=== PATIENT | male | born 1945 | race African-American/Black ===

== ENCOUNTER 2017-10-26 08:22 | Inpatient (IN) | payer MEDICARE, OTHER ==
[2017-10-26] VITALS (13 sets, daily range): BP systolic 109–159; BP diastolic 49–90; BMI 29.0
[~2017-10-26] VITALS: Ht 180.3 cm; Wt 145.2 kg
--- NOTE | ~2017-10-26 | OP ---
PATIENT NAME: JUDGE FERNANDO MEDICAL RECORD: [id number] :44 LOCATION:D. D.2124 ADMISSION DATE:10/26/17 SURGEON: EVELYN CASTAÑEDA MD DATE OF OPERATION: 11/04/2017 DATE OF ADMISSION: 10/26/2017. REFERRING PHYSICIAN: Vu Patricia MD PREOPERATIVE DIAGNOSIS: End-stage renal disease. POSTOPERATIVE DIAGNOSIS: End-stage renal disease. OPERATION PERFORMED: Insertion of a right internal jugular 19-cm long HemoSplit tunneled dialysis catheter. ANESTHESIA: Local with IV sedation and monitoring per FLASK CARRIER. SURGEON: Evelyn Castañeda MD PREOPERATIVE NOTE: Mr. Mckeon is a 72-year-old -Citizen Of [place] male who was admitted to the hospital with apparent urinary tract infection and sepsis. His renal function most recently had him as a CKD IV, but he is now in end-stage disease and requires initiation of dialysis and so we will need a catheter placed. DESCRIPTION OF PROCEDURE: Under minimal sedation in supine position, the patient's placed with his neck extended and his head turned to the left, is prepped and draped in a sterile manner. Ultrasound examination revealed the right internal jugular vein to be of normal caliber and without any filling defects or any other abnormalities sonographically. An incision was made at the base of the neck directly over the vein and another stab incision made beneath the clavicle. I chose a 19 cm long HemoSplit and flushed both lumens and then pulled it through subcutaneous tunnel from the infraclavicular stab wound up to the cervical incision. Then under ultrasound, I placed a needle and guidewire directly into the internal jugular vein and advanced the wire into the right atrium. Dilators were passed over the wire and lastly, a dilator peel-away sheath was placed and the catheter inserted through the sheath as it was removed. Fluoroscopy demonstrated a very nice positioning of the tip of the catheter deeply in the right atrium. Both lumens of the catheter were then accessed and aspirated, free return of blood confirmed. They were flushed with saline and then Hep-Lock solution, clamped and capped. The catheter was sutured to the skin near the entry site with 2-0 Prolene and a standard CBL dressing with a chlorhexidine Biopatch was applied. The cervical incision was closed with interrupted inverted 3-0 Vicryl and Dermabond glue and dressed with Maxorb Ag, Tegaderm, and Cavilon skin prep. The patient was then returned to his room in stable condition with clearance to as far as I am concerned to go ahead and begin dialysis ALVERTO. I will assume and plan this patient will need long-term dialysis access, but it should be in another admission and done electively after all signs of sepsis are cleared. Blood loss during the operation was nil. All sponges, instruments, and needles were accounted for. No drain was used and no surgical specimen was submitted OPERATIVE REPORT [id number] JUDGE FERNANDO for histopathology. TRANSINT:[id number] Voice Confirmation ID: [id number] DOCUMENT ID: [id number] EVELYN CASTAÑEDA MD at 1459 CC: [id number] DICTATION DATE: 11/04/17926 COTTAGE CHEESE MAKER: 11/04/17 1203 ADM IN [facility] [address] [place] [address]
--- NOTE | ~2017-10-26 | CN ---
PATIENT NAME:JUDGE FERNANDO MEDICAL RECORD: [id number] : 43 LOCATION:[facility].2124 ADMIT DATE: 10/26/17 ACCOUNT: [id number] CONSULTING PHYSICIAN: ANNA MAST MD REFERRING PHYSICIAN: YUSEF CASTILLO MD DATE OF CONSULTATION: 10/26/2017 Pulmonary Consultation CONSULT REQUESTING PHYSICIAN: Aliya Zepeda MD. REASON FOR CONSULTATION: Sepsis critical care. HISTORY OF PRESENT ILLNESS: Mr. Mckeon is a 72-year-old gentleman, now he is very confused and lethargic. History was taken by reviewing the patient's notes, talking to the nursing staff. The patient was doing well until 2 days ago. Yesterday, he became diaphoretic and became very weak. The patient was taken to the [facility]. He has acute non-Q wave UT with elevated troponin and also worsening renal function with a creatinine above 6. He had also significant leukocytosis of 20,000. The patient was transferred to [facility] for advanced care. REVIEW OF SYSTEMS: The details not obtainable. PAST MEDICAL HISTORY: 1. Chronic kidney disease. 2. Coronary artery disease. 3. Peripheral vascular disease. 4. History of diabetes mellitus type 2. 5. History of CVA. 6. History of DVT. 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 ALLERGIES: There are no known drug allergies. MEDICATIONS: On [employer] was reviewed. PERSONAL AND SOCIAL HISTORY: Nonsmoker, nondrinker. FAMILY HISTORY: Noncontributory. PHYSICAL EXAMINATION: GENERAL: Now, the patient is lying comfortably in bed. He is not in acute distress. VITAL SIGNS: The blood pressure is 155/79, pulse is 53, respiration is 16, SpO2 is 94% on 1 liter nasal cannula. HEENT: Conjunctivae pink, sclerae nonicteric. NECK: Supple, no JVD. CHEST: Excursion is minimal on both sides. No wheeze, no rales. HEART: Rhythm regular, normal sound, no murmur. ABDOMEN: Soft, bowel sounds present. No hepatosplenomegaly. RECTAL: Deferred. EXTREMITIES: No cyanosis, no clubbing. There is bilateral lower extremity CONSULT REPORT [id number] JUDGE FERNANDO amputation. CENTRAL NERVOUS SYSTEM: The patient is awake and alert, but he is very confused. LABORATORY DATA: CBC: The WBC is 20.5, hemoglobin 9.1, hematocrit 29.9 and the platelet count is 189. Chemistry: Sodium 140, potassium 4.3, chloride 104, bicarbonate is 20, BUN 106, creatinine 6.5. INR is 3.52. The urine has 3+ protein, 2+ blood. Color is turbid. IMPRESSION: 1. Acute hypoxic respiratory failure. 2. Sepsis bacteremia, most likely secondary to urinary tract infection. 3. Non-Q wave myocardial infarction. 4. Chronic kidney disease, which is getting acute on chronic kidney disease. 5. Peripheral vascular disease. 6. History of cerebrovascular accident. RECOMMENDATION: 1. I will discontinue Rocephin and start him on vancomycin, Levaquin, and cefepime to cover for MRSA and Gram-negative rods. 2. Follow up labs and chest radiograph. Follow up on the blood culture. 3. Heparin for acute UT. Dr. Zepeda, thank you for involving me in the care of Mr. Mckeon. TRANSINT:[id number] Voice Confirmation ID: [id number] DOCUMENT ID: [id number] ANNA MAST MD at 1340 CC: DOMINIQUE MAYA [id number] DICTATION DATE: 10/26/17 1538 PROCESS MOLD TECHNICIAN: 10/26/17 1613 DIS IN 11/12/[address] [address]
--- NOTE | ~2017-10-26 | CN ---
PATIENT NAME:JUDGE FERNANDO MEDICAL RECORD: [id number] : 43 LOCATION:[facility].2124 ADMIT DATE: 10/26/17 ACCOUNT: [id number] CONSULTING PHYSICIAN: STEPHAN JACOBSON MD REFERRING PHYSICIAN: YUSEF CASTILLO MD DATE OF CONSULTATION: 10/26/2017 CARDIOLOGY CONSULTATION DIAGNOSES: 1. Non-Q-wave myocardial infarction. 2. Coronary artery disease. 3. Abnormal ECG. 4. Renal failure. 5. Urosepsis. 6. Peripheral vascular disease. 7. Anemia. 8. History of hypertension. HISTORY OF PRESENT ILLNESS: Mr. Mckeon presents to [facility] with uroseptic hypotensive syndrome and found to have an elevated troponin. His EKG has T-wave inversions throughout the anterolateral leads. He is not having any chest pain or chest discomfort. Very poor historian. He is in yushs-hc-ycowidv renal failure. His creatinine is greater than 6. Previously, his creatinine was in the 3.0 range. He is followed by Dr. Guillermo. He does not have a history of coronary artery disease. He has a history of peripheral vascular disease. PHYSICAL EXAMINATION: GENERAL APPEARANCE: Well-nourished, well-developed, appears stated age. Level of distress, comfortable. PSYCHIATRIC: Mental status, alert, normal affect. Orientation, oriented to time, place and person. EYES: Lids and conjunctiva, noninjected. No discharge, no pallor. ENT: Lips, teeth, gums, normal dentition. Oropharynx, no cyanosis, no pallor. NECK: Carotid arteries, bilateral normal upstroke, no bruits, no thrills. JUGULAR VEINS: No jugular venous pressure or distention. CERVICAL LYMPH NODES: Nontender, nonenlarged. THYROID: Not enlarged. Nontender. No nodules. LUNGS: Respiratory effort, unlabored. CHEST: Normal curvature. No thoracic deformity. No chest wall tenderness. Percussion, resonant. Auscultation, clear. No wheezes, no rales, no rhonchi. CARDIOVASCULAR: Precordial exam, nondisplaced. No heaves or pericardial thrills. Rate and rhythm, regular. Heart sounds, normal S1, normal S2. No S3, no gallop, no rub. Systolic murmur, not heard. Diastolic murmur, not heard. EXTREMITIES: No cyanosis, no edema. Peripheral pulses, full and equal in all extremities, except as noted. No bruits appreciated. ABDOMEN: Soft, nondistended. Normal aorta. No bruit. Nontender. No masses. Liver, nontender, no hepatomegaly. Spleen, nontender, no splenomegaly. MUSCULOSKELETAL: No joint tenderness. No joint swelling. No erythema. NEUROLOGICAL: Normal gait, normal strength, normal tone. SKIN: Warm and dry. OVERALL IMPRESSION: Non-Q-wave myocardial infarction. At this time, he is on pressors. We cannot add a beta-peyman. We will add aspirin and Plavix. Get an echo for LV function. Further care depends upon his status after treatment CONSULT REPORT [id number] JUDGE FERNANDO of the urosepsis. TRANSINT:[id number] Voice Confirmation ID: [id number] DOCUMENT ID: [id number] STEPHAN JACOBSON MD at 1148 CC: [id number] DICTATION DATE: 10/26/17 1200 MEDICAL RECORD LIBRARIANS TEACHER: 10/26/17 1223 ADM IN [place] [id number] [place] [address]
--- NOTE | ~2017-10-26 | EC ---
PATIENT:JUDGE FERNANDO DATE OF SERVICE: 10/26/17 SEX: M MEDICAL RECORD: [id number] DATE OF : 43 LOCATION:D.M2 D.212 AGE OF PATIENT: 72 ADMISSION DATE: 10/26/17 REFERRING PHYSICIAN: INTERPRETING PHYSICIAN: STEPHAN JACOBSON MD ECHOCARDIOGRAM REPORT ECHO CHARGES 4 ECHO COMPLETE CLINICAL DIAGNOSIS: [place] ECHOCARDIOGRAPHIC MEASUREMENTS (adult normal given) AC root (d.<3.7cm) 4.0 cm LV Septum d (<1.2 cm> 1.9 cm Valve Excursion 2.1 cm LV Septum (systole) 2.4 cm Left Atria (s.<4.0cm> 4.3 cm LVPW d(<1.2cm) 1.8 cm RV (d.<2.3cm) 2.6 cm LVPW (sytole) 2.3 cm LV diastole(<5.6CM) 5.3 cm MV E-F(>70mm/sec) cm LV systole 4.2 cm LVOT Diameter 2.0 cm MV exc.(>10mm) cm Est.ejection fraction (50-75%) % Pericardial Effusion N DOPPLER: LVIT cm/sec A 138 cm/sec E 69.0 cm/sec LA cm/sec RVSP 21.4 mmHg LVOT 87.0 cm/sec AOP1/2T m/s Asc. Ao 105 cm/sec RVOT 44.0 cm/sec RA cm/sec PA 67.0 cm/sec AV Gradient Peak 4.4 mmHg AV Mean 2.1 mmHg AV Area 2.7 cm MV Gradient Peak 9.1 mmHg MV Mean 2.4 mmHg MV Area cm COMMENTS: Accounts Specialist: 1 OLIVIA YEH Brine Tank Separator Operator: 2 Dr. He TAPE# PACS DATE OF SERVICE: 10/26/2017 Echocardiogram FINDINGS: 1. Left ventricle chamber size is within normal limits. Left ventricular systolic function is mildly depressed. Overall ejection fraction estimated at 40%. 2. Left atrium, right atrium and right ventricular chamber sizes are dilated mildly. ECHOCARDIOGRAM REPORT [id number] JUDGE FERNANDO 3. Valvular structures have normal structure and motion. 4. Doppler interrogation reveals mild aortic insufficiency, moderate mitral regurgitation, mild tricuspid regurgitation, no other valvular insufficiency or stenosis and pulmonary systolic pressure is normal estimated at 21 mmHg. 5. No evidence of pericardial effusion or left ventricular thrombus. TRANSINT:[id number] Voice Confirmation ID: [id number] DOCUMENT ID: [id number] STEPHAN JACOBSON MD at 1148 CC: [id number] DICTATION DATE: 10/26/17 1645 ELECTRICAL PRODUCTS ENGINEER: 10/26/17 1901 ADM IN [facility] [address] [place] [address]
[~2017-10-26 08:22] MED LIST: COUMADIN2.5 MG PO; HYDROCODON-ACE1 EAC7 PO; K-DUR20 MEQ PO; LASIX80 MG PO; LEVAQUIN500 MG PO; LIPITOR20 MG PO; NORVASC5 MG PO; NOVOLOG100 U/M1; REMERON30 MG/UDTA PO; TOPROL XL100 MG PO; VASOTEC20 MG PO; ZESTRIL40 MG PO
[2017-10-26 09:34] LABS: AMORPHOUS SEDIMENT >1+ /lpf (NONE SEEN); APPEARANCE TURBID (CLEAR); BACTERIA MANY /hpf (NONE SEEN); BILIRUBIN NEGATIVE (NEGATIVE); COLOR YELLOW (YELLOW); EPITHELIAL CELLS 0-5 /hpf (0-5); GLUCOSE NEGATIVE (NEGATIVE); HYALINE CAST RARE /lpf (NONE SEEN); KETONE NEGATIVE (NEGATIVE); MUCUS <1+ /lpf (NONE SEEN); NITRITE NEGATIVE (NEGATIVE); PROTEIN 3+ mg/dL (NEGATIVE); SPECIFIC GRAVITY 1.015 (1.005-1.020); UROBILINOGEN NORMAL (NORMAL); WHITE CELLS - URINE >50 /hpf (0-5)
[2017-10-26 10:27] LABS: ALBUMIN 2.7 g/dL (3.4-5.0); ANION GAP 20.3 mmol/L (8-16); BILIRUBIN - TOTAL 0.43 mg/dL (0.2-1.3); CREATININE - SERUM 6.5 mg/dL (0.6-1.3); POTASSIUM - SERUM 4.3 mmol/L (3.5-5.1); PROTEIN - SERUM 7.2 g/dL (6.4-8.2)
[2017-10-26 10:29] LABS: INR 3.52 (0.85-1.17); PROTIME 34.5 SECONDS (11.6-15.0)
[2017-10-26 10:30] LABS: D-DIMER-QUANTITATIVE 0.93 ug/mLFEU (0.20-0.54)
[2017-10-26 10:40] LABS: HEMATOCRIT 29.9 % (42.0-54.0); HEMOGLOBIN 9.1 g/dL (13.5-17.5); MCH 27.2 pg (26.0-34.0); MCHC 30.4 g/dL (31.0-37.0); MCV 89.3 fL (80.0-100.0); MEAN PLATELET VOLUME 13.5 fL (7.4-10.4); PLATELET COUNT 189 10x3/uL (130-400); RBC 3.35 10x6/uL (4.20-6.10); RDW 15.4 % (11.5-14.5); WBC 20.5 10x3/uL (4.8-10.8)
[2017-10-26 10:49] LABS: TROPONIN-I 23.189 ng/mL (0.000-0.060)
[2017-10-26 10:56] LABS: LYMPHOCYTES 17 % (15-50); MONOCYTES 7 % (2-11); NEUTROPHILS 61 % (40-80); PLATELET ESTIMATE NORMAL; POIKILOCYTOSIS 1+
[2017-10-26 11:11] LABS: APTT > 200.0 SECONDS (22.8-39.4)
[2017-10-26] MEDS ORDERED: COUMADIN2.5 MG PO (13:53)
[2017-10-27] VITALS (15 sets, daily range): BP systolic 108–167; BP diastolic 51–80; Ht 180.3 cm; Wt 145.2 kg
[2017-10-27 02:01] LABS: BASOPHILS 0.1 % (0-2); EOSINOPHILS 0.2 % (0-7); HEMATOCRIT 28.9 % (42.0-54.0); HEMOGLOBIN 8.9 g/dL (13.5-17.5); IMMATURE GRANULOCYTES 0.4 % (0-5); LYMPHOCYTES 14.9 % (15-50); MCH 26.7 pg (26.0-34.0); MCHC 30.8 g/dL (31.0-37.0); MCV 86.8 fL (80.0-100.0); MEAN PLATELET VOLUME 12.9 fL (7.4-10.4); MONOCYTES 4.2 % (2-11); NEUTROPHILS 80.2 % (40-80); PLATELET COUNT 187 10x3/uL (130-400); RBC 3.33 10x6/uL (4.20-6.10); RDW 15.2 % (11.5-14.5); WBC 19.4 10x3/uL (4.8-10.8)
[2017-10-27 02:13] LABS: ALBUMIN 2.3 g/dL (3.4-5.0); ANION GAP 18.4 mmol/L (8-16); BILIRUBIN - TOTAL 0.23 mg/dL (0.2-1.3); CARBON DIOXIDE 20.2 mmol/L (21.0-32.0); CREATININE - SERUM 6.6 mg/dL (0.6-1.3); POTASSIUM - SERUM 4.6 mmol/L (3.5-5.1); PROTEIN - SERUM 6.7 g/dL (6.4-8.2)
[2017-10-27 10:27] LABS: INR 4.52 (0.85-1.17)
[2017-10-27 10:37] LABS: APTT > 200.0 SECONDS (22.8-39.4)
[2017-10-27] MEDS ORDERED: BACTRIM DS TABL1 TAB PO (10:45)
[2017-10-27] MEDS ORDERED: CATAPRES0.1 MG PO (10:46)
[2017-10-27] MEDS ORDERED: ROCALTROL0.5 MCG PO (10:47)
[2017-10-27] MEDS ORDERED: ZESTRIL40 MG PO (10:48)
[2017-10-27] MEDS ORDERED: VITAMIN D10000 UNI1 PO (10:50)
[2017-10-27] MEDS ORDERED: LANTUS SOL100 UNIT/1 SC (10:50)
[2017-10-27] MEDS ORDERED: HUMALOG 30100 UNITS/ SC (10:51)
[2017-10-28 00:33] VITALS: BP 148/58
[2017-10-28 04:51] VITALS: BP 152/53
[2017-10-28 05:16] LABS: INR 4.46 (0.85-1.17); PROTIME 41.6 SECONDS (11.6-15.0)
[2017-10-28 05:17] LABS: APTT 94.7 SECONDS (22.8-39.4); BASOPHILS 0.2 % (0-2); EOSINOPHILS 0.8 % (0-7); HEMOGLOBIN 8.5 g/dL (13.5-17.5); IMMATURE GRANULOCYTES 0.4 % (0-5); LYMPHOCYTES 18.2 % (15-50); MCH 26.2 pg (26.0-34.0); MCHC 30.4 g/dL (31.0-37.0); MCV 86.2 fL (80.0-100.0); MEAN PLATELET VOLUME 13.6 fL (7.4-10.4); MONOCYTES 6.1 % (2-11); NEUTROPHILS 74.3 % (40-80); PLATELET COUNT 185 10x3/uL (130-400); RBC 3.25 10x6/uL (4.20-6.10); RDW 15.3 % (11.5-14.5)
[2017-10-28 05:18] LABS: WBC 11.1 10x3/uL (4.8-10.8)
[2017-10-28 05:25] LABS: ALBUMIN 2.3 g/dL (3.4-5.0); ANION GAP 17.3 mmol/L (8-16); BILIRUBIN - TOTAL 0.3 mg/dL (0.2-1.3); CALCIUM 8.4 mg/dL (8.5-10.1); CARBON DIOXIDE 19.8 mmol/L (21.0-32.0); CREATININE - SERUM 6.1 mg/dL (0.6-1.3); MAGNESIUM - SERUM 2.4 mg/dL (1.8-2.4); POTASSIUM - SERUM 4.1 mmol/L (3.5-5.1); PROTEIN - SERUM 6.5 g/dL (6.4-8.2)
[2017-10-28 07:28] VITALS: BP 144/63
[2017-10-28 11:27] VITALS: BP 128/59
[2017-10-28 15:00] VITALS: BP 145/65
[2017-10-28 20:03] VITALS: BP 131/63
[2017-10-29 00:51] VITALS: BP 145/52
[2017-10-29 03:58] LABS: BASOPHILS 0.3 % (0-2); EOSINOPHILS 0.8 % (0-7); HEMATOCRIT 27.5 % (42.0-54.0); HEMOGLOBIN 8.4 g/dL (13.5-17.5); IMMATURE GRANULOCYTES 0.4 % (0-5); LYMPHOCYTES 30.1 % (15-50); MCH 26.2 pg (26.0-34.0); MCHC 30.5 g/dL (31.0-37.0); MCV 85.7 fL (80.0-100.0); MEAN PLATELET VOLUME 12.8 fL (7.4-10.4); MONOCYTES 8.5 % (2-11); NEUTROPHILS 59.9 % (40-80); PLATELET COUNT 179 10x3/uL (130-400); RBC 3.21 10x6/uL (4.20-6.10); RDW 15.1 % (11.5-14.5)
[2017-10-29 03:59] LABS: WBC 7.8 10x3/uL (4.8-10.8)
[2017-10-29 04:18] LABS: ALBUMIN 2.2 g/dL (3.4-5.0); ANION GAP 16.3 mmol/L (8-16); BILIRUBIN - TOTAL 0.37 mg/dL (0.2-1.3); CALCIUM 8.5 mg/dL (8.5-10.1); CARBON DIOXIDE 19.7 mmol/L (21.0-32.0); MAGNESIUM - SERUM 2.2 mg/dL (1.8-2.4); PROTEIN - SERUM 6.6 g/dL (6.4-8.2); VANCOMYCIN - RANDOM 31.3 ug/mL (10.0-20.0)
[2017-10-29 04:32] VITALS: BP 144/76
[2017-10-29 07:54] VITALS: BP 147/60
[2017-10-29 11:28] VITALS: BP 95/66
[2017-10-29 15:22] VITALS: BP 126/65
[2017-10-29 19:00] VITALS: BP 140/57
[2017-10-30] VITALS: BP 154/64
[2017-10-30 04:00] VITALS: BP 174/67
[2017-10-30 04:32] LABS: BASOPHILS 0.3 % (0-2); EOSINOPHILS 0.8 % (0-7); HEMATOCRIT 27.9 % (42.0-54.0); HEMOGLOBIN 8.4 g/dL (13.5-17.5); IMMATURE GRANULOCYTES 0.8 % (0-5); LYMPHOCYTES 33.7 % (15-50); MCH 26.1 pg (26.0-34.0); MCHC 30.1 g/dL (31.0-37.0); MCV 86.6 fL (80.0-100.0); MEAN PLATELET VOLUME 12.8 fL (7.4-10.4); MONOCYTES 9.1 % (2-11); NEUTROPHILS 55.3 % (40-80); PLATELET COUNT 186 10x3/uL (130-400); RBC 3.22 10x6/uL (4.20-6.10); RDW 15.2 % (11.5-14.5); WBC 7.7 10x3/uL (4.8-10.8)
[2017-10-30 04:53] LABS: ALBUMIN 2.4 g/dL (3.4-5.0); ANION GAP 15.2 mmol/L (8-16); BILIRUBIN - TOTAL 0.4 mg/dL (0.2-1.3); CALCIUM 7.8 mg/dL (8.5-10.1); CARBON DIOXIDE 22.8 mmol/L (21.0-32.0); CREATININE - SERUM 6.1 mg/dL (0.6-1.3); MAGNESIUM - SERUM 2.4 mg/dL (1.8-2.4); PROTEIN - SERUM 6.8 g/dL (6.4-8.2); VANCOMYCIN - RANDOM 26.9 ug/mL (10.0-20.0)
[2017-10-30 08:24] VITALS: BP 188/68
[2017-10-30 11:36] VITALS: BP 119/59
[2017-10-30 15:41] VITALS: BP 160/65
[2017-10-30 18:29] LABS: APPEARANCE CLEAR (CLEAR); BILIRUBIN NEGATIVE (NEGATIVE); COLOR YELLOW (YELLOW); GLUCOSE NEGATIVE (NEGATIVE); KETONE NEGATIVE (NEGATIVE); NITRITE NEGATIVE (NEGATIVE); PROTEIN 2+ mg/dL (NEGATIVE); SPECIFIC GRAVITY 1.015 (1.005-1.020); UROBILINOGEN NORMAL (NORMAL)
[2017-10-30 18:33] LABS: BACTERIA MODERATE /hpf (NONE SEEN); EPITHELIAL CELLS 0-5 /hpf (0-5); GRANULAR CAST OCC /lpf (NONE SEEN); HYALINE CAST RARE /lpf (NONE SEEN); MUCUS <1+ /lpf (NONE SEEN); RED CELLS - URINE OCC /hpf (0-5); WHITE CELLS - URINE 0-5 /hpf (0-5)
[2017-10-30 20:00] VITALS: BP 104/69
[2017-10-31] VITALS: BP 175/69
[2017-10-31 04:00] VITALS: BP 144/70
[2017-10-31 05:41] LABS: BASOPHILS 0.2 % (0-2); EOSINOPHILS 0.8 % (0-7); HEMATOCRIT 27.7 % (42.0-54.0); HEMOGLOBIN 8.4 g/dL (13.5-17.5); IMMATURE GRANULOCYTES 0.9 % (0-5); LYMPHOCYTES 35.3 % (15-50); MCH 26.3 pg (26.0-34.0); MCHC 30.3 g/dL (31.0-37.0); MCV 86.6 fL (80.0-100.0); MEAN PLATELET VOLUME 13.1 fL (7.4-10.4); MONOCYTES 9.2 % (2-11); NEUTROPHILS 53.6 % (40-80); PLATELET COUNT 195 10x3/uL (130-400); RDW 15.3 % (11.5-14.5); WBC 8.5 10x3/uL (4.8-10.8)
[2017-10-31 05:48] LABS: INR 1.9 (0.85-1.17); PROTIME 21.2 SECONDS (11.6-15.0)
[2017-10-31 05:55] LABS: ALBUMIN 2.5 g/dL (3.4-5.0); ANION GAP 17.1 mmol/L (8-16); BILIRUBIN - TOTAL 0.5 mg/dL (0.2-1.3); CALCIUM 8.2 mg/dL (8.5-10.1); CARBON DIOXIDE 21.8 mmol/L (21.0-32.0); CREATININE - SERUM 5.8 mg/dL (0.6-1.3); MAGNESIUM - SERUM 2.4 mg/dL (1.8-2.4); POTASSIUM - SERUM 3.9 mmol/L (3.5-5.1); PROTEIN - SERUM 6.9 g/dL (6.4-8.2); VANCOMYCIN - RANDOM 23.7 ug/mL (10.0-20.0)
[2017-10-31 07:48] VITALS: BP 149/67
[2017-10-31 10:38] VITALS: BP 143/77
[2017-10-31 14:56] VITALS: BP 138/77
[2017-10-31 20:00] VITALS: BP 179/64
[2017-11-01 04:00] VITALS: BP 119/61
[2017-11-01 08:06] VITALS: BP 119/66
[2017-11-01 11:14] VITALS: BP 166/58
[2017-11-01 14:56] VITALS: BP 154/61
[2017-11-01 20:00] VITALS: BP 157/69
[2017-11-02] VITALS: BP 150/60
[2017-11-02 04:00] VITALS: BP 118/66
[2017-11-02 06:19] LABS: BASOPHILS 0.1 % (0-2); EOSINOPHILS 1.8 % (0-7); HEMATOCRIT 27.9 % (42.0-54.0); HEMOGLOBIN 8.4 g/dL (13.5-17.5); IMMATURE GRANULOCYTES 1.8 % (0-5); LYMPHOCYTES 31.7 % (15-50); MCH 26.3 pg (26.0-34.0); MCHC 30.1 g/dL (31.0-37.0); MCV 87.2 fL (80.0-100.0); MEAN PLATELET VOLUME 13.1 fL (7.4-10.4); MONOCYTES 10.1 % (2-11); NEUTROPHILS 54.5 % (40-80); PLATELET COUNT 232 10x3/uL (130-400); RDW 15.3 % (11.5-14.5)
[2017-11-02 06:32] LABS: ANION GAP 15.5 mmol/L (8-16); CARBON DIOXIDE 24.3 mmol/L (21.0-32.0); CREATININE - SERUM 5.3 mg/dL (0.6-1.3); POTASSIUM - SERUM 3.8 mmol/L (3.5-5.1)
[2017-11-02 08:04] VITALS: BP 144/64
[2017-11-02 11:04] VITALS: BP 142/68
[2017-11-02 14:39] VITALS: BP 136/77
[2017-11-02 20:39] VITALS: BP 75/43
[2017-11-03] VITALS: BP 81/56
[2017-11-03 04:53] VITALS: BP 105/45
[2017-11-03 08:09] VITALS: BP 121/61
[2017-11-03 09:45] LABS: BASOPHILS 0.1 % (0-2); EOSINOPHILS 1.6 % (0-7); HEMATOCRIT 26.9 % (42.0-54.0); HEMOGLOBIN 8.3 g/dL (13.5-17.5); IMMATURE GRANULOCYTES 2.1 % (0-5); LYMPHOCYTES 31.8 % (15-50); MCH 26.9 pg (26.0-34.0); MCHC 30.9 g/dL (31.0-37.0); MCV 87.1 fL (80.0-100.0); MEAN PLATELET VOLUME 12.4 fL (7.4-10.4); MONOCYTES 9.1 % (2-11); NEUTROPHILS 55.3 % (40-80); PLATELET COUNT 238 10x3/uL (130-400); RBC 3.09 10x6/uL (4.20-6.10); RDW 15.5 % (11.5-14.5); WBC 9.2 10x3/uL (4.8-10.8)
[2017-11-03 09:48] LABS: ANION GAP 15.7 mmol/L (8-16); CALCIUM 8.5 mg/dL (8.5-10.1); CARBON DIOXIDE 23.8 mmol/L (21.0-32.0); CREATININE - SERUM 5.6 mg/dL (0.6-1.3)
[2017-11-03 09:56] LABS: POTASSIUM - SERUM 4.5 mmol/L (3.5-5.1)
[2017-11-03 11:19] VITALS: BP 111/54
[2017-11-03 15:22] VITALS: BP 111/54
[2017-11-03 20:00] VITALS: BP 119/57
[2017-11-04] VITALS: BP 101/50
[2017-11-04 04:00] VITALS: BP 136/52
[2017-11-04 06:24] LABS: BASOPHILS 0.1 % (0-2); EOSINOPHILS 1.6 % (0-7); HEMATOCRIT 26.2 % (42.0-54.0); HEMOGLOBIN 7.8 g/dL (13.5-17.5); IMMATURE GRANULOCYTES 1.6 % (0-5); LYMPHOCYTES 28.9 % (15-50); MCH 26.4 pg (26.0-34.0); MCHC 29.8 g/dL (31.0-37.0); MCV 88.5 fL (80.0-100.0); MEAN PLATELET VOLUME 12.8 fL (7.4-10.4); MONOCYTES 8.3 % (2-11); NEUTROPHILS 59.5 % (40-80); PLATELET COUNT 251 10x3/uL (130-400); RBC 2.96 10x6/uL (4.20-6.10); RDW 15.7 % (11.5-14.5); WBC 8.6 10x3/uL (4.8-10.8)
[2017-11-04 06:26] LABS: APTT 22.5 SECONDS (22.8-39.4); INR 1.45 (0.85-1.17); PROTIME 17.2 SECONDS (11.6-15.0)
[2017-11-04 06:32] LABS: % SATURATION 43 % (15-55); IRON 63 ug/dl (35-150); TOTAL IRON BIND CAPACITY 144 ug/dl (260-445); UNSAT IRON BIND CAPACITY 81 ug/dl (150-375)
[2017-11-04 07:12] LABS: ANION GAP 14.4 mmol/L (8-16); CALCIUM 8.7 mg/dL (8.5-10.1); CARBON DIOXIDE 25.5 mmol/L (21.0-32.0); CREATININE - SERUM 5.7 mg/dL (0.6-1.3); PHOSPHOROUS 6.1 mg/dL (2.5-4.9); POTASSIUM - SERUM 3.9 mmol/L (3.5-5.1); VANCOMYCIN - RANDOM 15.4 ug/mL (10.0-20.0)
[2017-11-04 08:53] VITALS: BP 141/56
[2017-11-04 13:36] VITALS: BP 121/52
[2017-11-04 19:00] VITALS: BP 106/85
[2017-11-05] VITALS: BP 136/64
[2017-11-05 04:00] VITALS: BP 137/50
[2017-11-05 06:17] LABS: BASOPHILS 0.2 % (0-2); HEMATOCRIT 27.8 % (42.0-54.0); HEMOGLOBIN 8.3 g/dL (13.5-17.5); IMMATURE GRANULOCYTES 1.4 % (0-5); LYMPHOCYTES 20.4 % (15-50); MCH 26.7 pg (26.0-34.0); MCHC 29.9 g/dL (31.0-37.0); MCV 89.4 fL (80.0-100.0); MONOCYTES 7.5 % (2-11); NEUTROPHILS 69.5 % (40-80); PLATELET COUNT 242 10x3/uL (130-400); RBC 3.11 10x6/uL (4.20-6.10); RDW 15.8 % (11.5-14.5)
[2017-11-05 06:20] LABS: ANION GAP 13.9 mmol/L (8-16); CALCIUM 8.9 mg/dL (8.5-10.1); CREATININE - SERUM 4.5 mg/dL (0.6-1.3); POTASSIUM - SERUM 3.9 mmol/L (3.5-5.1); VANCOMYCIN - RANDOM 14.4 ug/mL (10.0-20.0)
[2017-11-05 07:46] VITALS: BP 137/50
[2017-11-05 08:20] LABS: FOLATE (FOLIC ACID) - SERUM 5.2 ng/mL (>3.0)
[2017-11-05 11:10] LABS: INR 1.44 (0.85-1.17); PROTIME 17.1 SECONDS (11.6-15.0)
[2017-11-05 11:11] LABS: APTT 33.4 SECONDS (22.8-39.4)
[2017-11-05 15:34] VITALS: BP 106/49
[2017-11-05 18:10] LABS: HEMATOCRIT 27.6 % (42.0-54.0); HEMOGLOBIN 8.4 g/dL (13.5-17.5)
[2017-11-05 18:21] LABS: INR 1.35 (0.85-1.17); PROTIME 16.2 SECONDS (11.6-15.0)
[2017-11-06 00:47] VITALS: BP 123/55
[2017-11-06 05:39] LABS: BASOPHILS 0.2 % (0-2); EOSINOPHILS 0.9 % (0-7); HEMATOCRIT 25.7 % (42.0-54.0); HEMOGLOBIN 7.6 g/dL (13.5-17.5); IMMATURE GRANULOCYTES 0.7 % (0-5); LYMPHOCYTES 17.8 % (15-50); MCH 26.4 pg (26.0-34.0); MCHC 29.6 g/dL (31.0-37.0); MCV 89.2 fL (80.0-100.0); MEAN PLATELET VOLUME 12.6 fL (7.4-10.4); NEUTROPHILS 73.4 % (40-80); PLATELET COUNT 218 10x3/uL (130-400); RBC 2.88 10x6/uL (4.20-6.10); RDW 15.9 % (11.5-14.5); WBC 11.6 10x3/uL (4.8-10.8)
[2017-11-06 06:02] LABS: INR 1.31 (0.85-1.17); PROTIME 15.8 SECONDS (11.6-15.0)
[2017-11-06 06:05] LABS: ANION GAP 15.7 mmol/L (8-16); CALCIUM 8.9 mg/dL (8.5-10.1); CREATININE - SERUM 4.7 mg/dL (0.6-1.3); POTASSIUM - SERUM 3.7 mmol/L (3.5-5.1)
[2017-11-06 06:44] VITALS: BP 134/57
[2017-11-06 08:11] VITALS: BP 125/46
[2017-11-06 11:26] VITALS: BP 131/52
[2017-11-06 16:53] VITALS: BP 126/58
[2017-11-06 20:00] VITALS: BP 91/62
[2017-11-07 06:00] VITALS: BP 110/30
[2017-11-07 08:13] LABS: BASOPHILS 0.2 % (0-2); IMMATURE GRANULOCYTES 0.4 % (0-5); LYMPHOCYTES 20.8 % (15-50); MCH 27.5 pg (26.0-34.0); MCHC 31.8 g/dL (31.0-37.0); MEAN PLATELET VOLUME 12.6 fL (7.4-10.4); MONOCYTES 10.1 % (2-11); NEUTROPHILS 66.5 % (40-80); PLATELET COUNT 181 10x3/uL (130-400); RDW 15.5 % (11.5-14.5); WBC 10.1 10x3/uL (4.8-10.8)
[2017-11-07 08:21] LABS: ANION GAP 14.6 mmol/L (8-16); CALCIUM 8.9 mg/dL (8.5-10.1); CARBON DIOXIDE 25.3 mmol/L (21.0-32.0); CREATININE - SERUM 5.5 mg/dL (0.6-1.3); POTASSIUM - SERUM 3.9 mmol/L (3.5-5.1)
[2017-11-07 08:33] LABS: HEMATOCRIT 34.3 % (42.0-54.0); HEMOGLOBIN 10.9 g/dL (13.5-17.5); MCV 86.6 fL (80.0-100.0); RBC 3.96 10x6/uL (4.20-6.10)
[2017-11-07 08:46] VITALS: BP 166/70
[2017-11-07 16:11] VITALS: BP 170/70
[2017-11-07 20:00] VITALS: BP 128/74
[2017-11-08 04:53] LABS: BASOPHILS 0.3 % (0-2); EOSINOPHILS 1.5 % (0-7); IMMATURE GRANULOCYTES 0.4 % (0-5); LYMPHOCYTES 18.7 % (15-50); MCH 27.6 pg (26.0-34.0); MCHC 31.4 g/dL (31.0-37.0); MCV 87.7 fL (80.0-100.0); MEAN PLATELET VOLUME 12.3 fL (7.4-10.4); MONOCYTES 10.2 % (2-11); NEUTROPHILS 68.9 % (40-80); PLATELET COUNT 195 10x3/uL (130-400); RBC 3.99 10x6/uL (4.20-6.10); RDW 15.8 % (11.5-14.5)
[2017-11-08 05:06] LABS: ANION GAP 14.7 mmol/L (8-16); CALCIUM 8.2 mg/dL (8.5-10.1); CARBON DIOXIDE 27.8 mmol/L (21.0-32.0); POTASSIUM - SERUM 3.5 mmol/L (3.5-5.1)
[2017-11-08 05:07] LABS: CREATININE - SERUM 3.8 mg/dL (0.6-1.3)
[2017-11-08 05:57] VITALS: BP 155/68
[2017-11-08 09:37] VITALS: BP 163/67
[2017-11-08 11:50] VITALS: BP 112/59
[2017-11-08 16:20] VITALS: BP 137/62
[2017-11-08 20:00] VITALS: BP 93/41
[2017-11-09] VITALS: BP 112/52
[2017-11-09 04:00] VITALS: BP 100/50
[2017-11-09 05:39] LABS: BASOPHILS 0.2 % (0-2); EOSINOPHILS 1.5 % (0-7); HEMATOCRIT 34.2 % (42.0-54.0); HEMOGLOBIN 10.7 g/dL (13.5-17.5); IMMATURE GRANULOCYTES 0.2 % (0-5); LYMPHOCYTES 20.6 % (15-50); MCH 27.7 pg (26.0-34.0); MCHC 31.3 g/dL (31.0-37.0); MCV 88.6 fL (80.0-100.0); MEAN PLATELET VOLUME 12.4 fL (7.4-10.4); MONOCYTES 12.9 % (2-11); NEUTROPHILS 64.6 % (40-80); PLATELET COUNT 198 10x3/uL (130-400); RBC 3.86 10x6/uL (4.20-6.10); RDW 15.8 % (11.5-14.5); WBC 9.8 10x3/uL (4.8-10.8)
[2017-11-09 05:51] LABS: ANION GAP 13.8 mmol/L (8-16); CALCIUM 8.5 mg/dL (8.5-10.1); CARBON DIOXIDE 28.7 mmol/L (21.0-32.0); POTASSIUM - SERUM 3.5 mmol/L (3.5-5.1)
[2017-11-09 06:04] LABS: CREATININE - SERUM 5.6 mg/dL (0.6-1.3)
[2017-11-09 08:37] VITALS: BP 127/54
[2017-11-09 12:35] VITALS: BP 109/59
[2017-11-09] MEDS ORDERED: COREG6.25 MG PO (15:14)
[2017-11-09] MEDS ORDERED: TUMS500 MG PO (15:14)
[2017-11-09] MEDS ORDERED: ANUSOL-HC25 MG RC (15:15)
[2017-11-09] MEDS ORDERED: MIRALAX17 GM PO (15:15)
[2017-11-09] MEDS ORDERED: PLAVIX75 MG PO (15:16)
[2017-11-09 20:12] VITALS: BP 86/45
[2017-11-10 02:32] VITALS: BP 170/73
[2017-11-10 06:09] LABS: BASOPHILS 0.6 % (0-2); EOSINOPHILS 2.8 % (0-7); HEMATOCRIT 35.8 % (42.0-54.0); IMMATURE GRANULOCYTES 0.3 % (0-5); LYMPHOCYTES 22.1 % (15-50); MCH 27.5 pg (26.0-34.0); MCHC 30.7 g/dL (31.0-37.0); MCV 89.5 fL (80.0-100.0); MONOCYTES 14.1 % (2-11); NEUTROPHILS 60.1 % (40-80); PLATELET COUNT 197 10x3/uL (130-400); RDW 15.6 % (11.5-14.5)
[2017-11-10 06:23] VITALS: BP 127/64
[2017-11-10 06:34] LABS: ANION GAP 13.2 mmol/L (8-16); CALCIUM 8.1 mg/dL (8.5-10.1); CARBON DIOXIDE 29.9 mmol/L (21.0-32.0); POTASSIUM - SERUM 3.1 mmol/L (3.5-5.1)
[2017-11-10 06:45] LABS: CREATININE - SERUM 3.9 mg/dL (0.6-1.3)
[2017-11-10 07:39] VITALS: BP 149/65
[2017-11-10 11:56] VITALS: BP 101/53
[2017-11-10 15:32] VITALS: BP 116/44
[2017-11-10 20:00] VITALS: BP 119/64
[2017-11-11] VITALS: BP 116/60
[2017-11-11 05:04] LABS: BASOPHILS 0.3 % (0-2); EOSINOPHILS 2.9 % (0-7); HEMATOCRIT 35.7 % (42.0-54.0); HEMOGLOBIN 11.1 g/dL (13.5-17.5); IMMATURE GRANULOCYTES 0.5 % (0-5); LYMPHOCYTES 30.2 % (15-50); MCHC 31.1 g/dL (31.0-37.0); MCV 89.9 fL (80.0-100.0); MEAN PLATELET VOLUME 12.9 fL (7.4-10.4); MONOCYTES 19.1 % (2-11); PLATELET COUNT 195 10x3/uL (130-400); RBC 3.97 10x6/uL (4.20-6.10); RDW 15.5 % (11.5-14.5); WBC 7.3 10x3/uL (4.8-10.8)
[2017-11-11 05:11] LABS: ANION GAP 10.7 mmol/L (8-16); CALCIUM 8.8 mg/dL (8.5-10.1); CARBON DIOXIDE 31.8 mmol/L (21.0-32.0); POTASSIUM - SERUM 3.5 mmol/L (3.5-5.1)
[2017-11-11 05:12] LABS: CREATININE - SERUM 5.5 mg/dL (0.6-1.3)
[2017-11-11 08:26] VITALS: BP 135/61
[2017-11-11 11:13] VITALS: BP 108/48
[2017-11-11 20:54] VITALS: BP 129/57
[2017-11-12 01:29] VITALS: BP 135/57
[2017-11-12 05:08] VITALS: BP 107/51
[2017-11-12 05:41] LABS: BASOPHILS 0.9 % (0-2); EOSINOPHILS 3.7 % (0-7); HEMATOCRIT 34.1 % (42.0-54.0); HEMOGLOBIN 10.3 g/dL (13.5-17.5); IMMATURE GRANULOCYTES 0.4 % (0-5); LYMPHOCYTES 31.6 % (15-50); MCH 27.1 pg (26.0-34.0); MCHC 30.2 g/dL (31.0-37.0); MCV 89.7 fL (80.0-100.0); MEAN PLATELET VOLUME 12.1 fL (7.4-10.4); MONOCYTES 16.2 % (2-11); NEUTROPHILS 47.2 % (40-80); PLATELET COUNT 193 10x3/uL (130-400); RDW 15.5 % (11.5-14.5); WBC 6.8 10x3/uL (4.8-10.8)
[2017-11-12 06:04] LABS: ANION GAP 13.8 mmol/L (8-16); CARBON DIOXIDE 28.9 mmol/L (21.0-32.0); CREATININE - SERUM 6.4 mg/dL (0.6-1.3); POTASSIUM - SERUM 3.7 mmol/L (3.5-5.1)
[2017-11-12 08:34] VITALS: BP 98/54
== END 2017-11-12 16:34 | DRG 871 ==
LOC: D.ER 08:22 → D.ICU 11:33 → D.M2 11:33 → D.SDCHOLD 10-28 13:11 → D.M2 10-28 13:12 → D.SDCHOLD 10-28 16:00 → D.M2 10-28 16:03
PROVIDERS: Emergency Medicine; Internal Medicine Gastroenterology; Internal Medicine Nephrology; Internal Medicine Pulmonary Disease; Surgery
PROC: 5A1D70Z Performance of Urinary Filtration, Intermittent, Less than 6 Hours Per Day (ICD-10-PCS; 2017-11-04)
PROC: 5A1D70Z Performance of Urinary Filtration, Intermittent, Less than 6 Hours Per Day (ICD-10-PCS; 2017-11-04)
PROC: 5A1D70Z Performance of Urinary Filtration, Intermittent, Less than 6 Hours Per Day (ICD-10-PCS; 2017-11-04)
PROC: 5A1D70Z Performance of Urinary Filtration, Intermittent, Less than 6 Hours Per Day (ICD-10-PCS; principal; 2017-11-04 08:00)
DX: A41.9 Sepsis, unspecified organism (principal); I21.A1 Myocardial infarction type 2; R65.21 Severe sepsis with septic shock; J96.01 Acute respiratory failure with hypoxia; J18.9 Pneumonia, unspecified organism; N39.0 Urinary tract infection, site not specified; N17.9 Acute kidney failure, unspecified; R57.9 Shock, unspecified; N18.4 Chronic kidney disease, stage 4 (severe); E11.22 Type 2 diabetes mellitus with diabetic chronic kidney disease; I12.9 Hypertensive chronic kidney disease with stage 1 through stage 4 chronic kidney disease, or unspecified chronic kidney disease; E11.51 Type 2 diabetes mellitus with diabetic peripheral angiopathy without gangrene

== ENCOUNTER 2017-12-16 23:04 | Inpatient (IN) | payer MEDICARE, OTHER ==
[~2017-12-16] VITALS: Ht 180.3 cm; Wt 84.1 kg
--- NOTE | ~2017-12-16 | EC ---
PATIENT:JUDGE FERNANDO DATE OF SERVICE: 12/17/17 SEX: M MEDICAL RECORD: [id number] DATE OF : 43 LOCATION:D.M2 D.213 AGE OF PATIENT: 72 ADMISSION DATE: 12/17/17 REFERRING PHYSICIAN: INTERPRETING PHYSICIAN: STEPHAN PRINCE MD ECHOCARDIOGRAM REPORT ECHO CHARGES 4 ECHO COMPLETE Date: 12/17 CLINICAL DIAGNOSIS: ASSESS FOR VEGATATION ECHOCARDIOGRAPHIC MEASUREMENTS (adult normal given) AC root (d.<3.7cm) 4.5 cm LV Septum d (<1.2 cm> 2.0 cm Valve Excursion 1.6 cm LV Septum (systole) 2.2 cm Left Atria (s.<4.0cm> 4.3 cm LVPW d(<1.2cm) 1.6 cm RV (d.<2.3cm) 3.9 cm LVPW (sytole) 2.1 cm LV diastole(<5.6CM) 5.6 cm MV E-F(>70mm/sec) cm LV systole 4.1 cm LVOT Diameter 1.9 cm MV exc.(>10mm) 1.4 cm Est.ejection fraction (50-75%) % DOPPLER: LVIT cm/sec A 137 cm/sec E 81.0 cm/sec LA cm/sec RVSP 33 mmHg LVOT 93 cm/sec AOP1/2T m/s Asc. Ao 122 cm/sec RVOT 75 cm/sec RA cm/sec PA 96 cm/sec AV Gradient Peak 5.99 mmHg AV Mean 3.15 mmHg AV Area 1.9 cm MV Gradient Peak 11.0 mmHg MV Mean 3.67 mmHg MV Area cm COMMENTS: Shoe Repairer Apprentice: Beni ROCHA Aircraft Engine Installer: 1 Dr. Prince TAPE# PACS Pericardial Effusion N DATE OF SERVICE: Echocardiogram FINDINGS: 1. Left ventricular chamber size is within normal limits. Left ventricular systolic function is normal. Overall ejection fraction estimated at 50%. 2. Left atrium is enlarged at 4.3 cm. Right atrium and right ventricular chamber sizes are moderately dilated. 3. Valvular structures have normal structure and motion. No evidence of ECHOCARDIOGRAM REPORT [id number] JUDGE FERNANDO vegetative endocarditis. 4. Doppler interrogation reveals mild mitral regurgitation, mild tricuspid regurgitation, no other valvular insufficiency or stenosis. Pulmonary systolic pressure is estimated 33 mmHg. 5. No evidence of pericardial effusion or left ventricular thrombus. TRANSINT:[id number] Voice Confirmation ID: [id number] DOCUMENT ID: [id number] STEPHAN PRINCE MD at 0956 CC: [id number] DICTATION DATE: 12/18/17 1057 ADOLESCENT PSYCHIATRIST: 12/18/17 1513 DIS IN 12/19/17 [facility] [address] [place] [id number]
[~2017-12-16 23:04] MED LIST changes: +ANUSOL-HC25 MG RC; +BACTRIM DS TABL1 TAB PO; +CATAPRES0.1 MG PO; +COREG6.25 MG PO; +HUMALOG 30100 UNITS/ SC; +LANTUS SOL100 UNIT/1 SC; +MIRALAX17 GM PO; +PLAVIX75 MG PO; +ROCALTROL0.5 MCG PO; +TUMS500 MG PO; +VITAMIN D10000 UNI1 PO
[2017-12-17 05:05] VITALS: BP 130/58
[2017-12-17 07:03] VITALS: BP 130/58; BMI 26.8
[2017-12-17 08:27] VITALS: BP 132/66
[2017-12-17 09:36] VITALS: BMI 26.7
[2017-12-17 10:04] VITALS: Ht 180.3 cm; Wt 84.1 kg
[2017-12-17 11:18] LABS: BASOPHILS 0.2 % (0-2); EOSINOPHILS 0.5 % (0-7); HEMATOCRIT 29.4 % (42.0-54.0); HEMOGLOBIN 9.1 g/dL (13.5-17.5); IMMATURE GRANULOCYTES 0.2 % (0-5); MCH 28.1 pg (26.0-34.0); MCV 90.7 fL (80.0-100.0); MONOCYTES 7.5 % (2-11); NEUTROPHILS 79.6 % (40-80); PLATELET COUNT 200 10x3/uL (130-400); RBC 3.24 10x6/uL (4.20-6.10); RDW 15.1 % (11.5-14.5)
[2017-12-17 11:22] LABS: INR 0.99 (0.85-1.17); PROTIME 12.7 SECONDS (11.6-15.0)
[2017-12-17 11:24] LABS: APTT 71.8 SECONDS (22.8-39.4)
[2017-12-17 11:34] LABS: ALBUMIN 2.7 g/dL (3.4-5.0); ANION GAP 17.3 mmol/L (8-16); BILIRUBIN - TOTAL 0.62 mg/dL (0.2-1.3); CALCIUM 9.3 mg/dL (8.5-10.1); CARBON DIOXIDE 26.5 mmol/L (21.0-32.0); CREATININE - SERUM 9.8 mg/dL (0.6-1.3); MAGNESIUM - SERUM 2.6 mg/dL (1.8-2.4); POTASSIUM - SERUM 4.8 mmol/L (3.5-5.1)
[2017-12-17 16:18] VITALS: BP 122/69
[2017-12-17 19:00] VITALS: BP 103/50
[2017-12-18 05:28] VITALS: BP 125/58
[2017-12-18 07:59] LABS: BASOPHILS 0.1 % (0-2); EOSINOPHILS 1.5 % (0-7); HEMATOCRIT 26.6 % (42.0-54.0); HEMOGLOBIN 8.2 g/dL (13.5-17.5); IMMATURE GRANULOCYTES 0.3 % (0-5); LYMPHOCYTES 12.2 % (15-50); MCH 27.7 pg (26.0-34.0); MCHC 30.8 g/dL (31.0-37.0); MCV 89.9 fL (80.0-100.0); MEAN PLATELET VOLUME 13.2 fL (7.4-10.4); NEUTROPHILS 75.9 % (40-80); PLATELET COUNT 175 10x3/uL (130-400); RBC 2.96 10x6/uL (4.20-6.10); WBC 15.5 10x3/uL (4.8-10.8)
[2017-12-18 08:17] LABS: ANION GAP 14.4 mmol/L (8-16); CALCIUM 8.6 mg/dL (8.5-10.1); CARBON DIOXIDE 22.1 mmol/L (21.0-32.0); PHOSPHOROUS 4.9 mg/dL (2.5-4.9); POTASSIUM - SERUM 4.5 mmol/L (3.5-5.1); VANCOMYCIN - RANDOM 25.6 ug/mL (10.0-20.0)
[2017-12-18 09:27] VITALS: BP 105/77
[2017-12-18 12:09] VITALS: BP 111/72
[2017-12-18 15:05] VITALS: BP 110/53
[2017-12-18 20:00] VITALS: BP 113/57
[2017-12-19] VITALS: BP 116/60
[2017-12-19 04:00] VITALS: BP 120/60
[2017-12-19 07:00] LABS: BASOPHILS 0.1 % (0-2); HEMATOCRIT 26.6 % (42.0-54.0); HEMOGLOBIN 8.2 g/dL (13.5-17.5); IMMATURE GRANULOCYTES 0.4 % (0-5); LYMPHOCYTES 13.7 % (15-50); MCH 27.6 pg (26.0-34.0); MCHC 30.8 g/dL (31.0-37.0); MCV 89.6 fL (80.0-100.0); MEAN PLATELET VOLUME 13.1 fL (7.4-10.4); MONOCYTES 10.1 % (2-11); NEUTROPHILS 74.7 % (40-80); PLATELET COUNT 190 10x3/uL (130-400); RBC 2.97 10x6/uL (4.20-6.10); RDW 14.8 % (11.5-14.5); WBC 15.4 10x3/uL (4.8-10.8)
[2017-12-19 07:07] LABS: ANION GAP 16.5 mmol/L (8-16); CALCIUM 8.4 mg/dL (8.5-10.1); CARBON DIOXIDE 23.1 mmol/L (21.0-32.0); CREATININE - SERUM 8.4 mg/dL (0.6-1.3); PHOSPHOROUS 4.9 mg/dL (2.5-4.9); POTASSIUM - SERUM 4.6 mmol/L (3.5-5.1); VANCOMYCIN - RANDOM 17.2 ug/mL (10.0-20.0)
[2017-12-19 08:25] VITALS: BP 136/61
[2017-12-20 17:13] LABS: HEPATITIS C ANTIBODY 0.1 (0.0-0.9)
== END 2017-12-19 15:35 | DRG 314 ==
LOC: D.M2 23:04
PROVIDERS: Internal Medicine Nephrology
PROC: 5A1D70Z Performance of Urinary Filtration, Intermittent, Less than 6 Hours Per Day (ICD-10-PCS; 2017-12-17)
PROC: 5A12012 Performance of Cardiac Output, Single, Manual (ICD-10-PCS; principal; 2017-12-19)
PROC: 0BH17EZ Insertion of Endotracheal Airway into Trachea, Via Natural or Artificial Opening (ICD-10-PCS; 2017-12-19)
DX: T82.7XXA Infection and inflammatory reaction due to other cardiac and vascular devices, implants and grafts, initial encounter (principal); A41.02 Sepsis due to Methicillin resistant Staphylococcus aureus; N18.6 End stage renal disease; G93.41 Metabolic encephalopathy; R53.2 Functional quadriplegia; I50.33 Acute on chronic diastolic (congestive) heart failure; N39.0 Urinary tract infection, site not specified; J96.10 Chronic respiratory failure, unspecified whether with hypoxia or hypercapnia; I13.2 Hypertensive heart and chronic kidney disease with heart failure and with stage 5 chronic kidney disease, or end stage renal disease; E83.39 Other disorders of phosphorus metabolism; D63.1 Anemia in chronic kidney disease; E11.22 Type 2 diabetes mellitus with diabetic chronic kidney disease; Z99.2 Dependence on renal dialysis; J44.9 Chronic obstructive pulmonary disease, unspecified; E11.51 Type 2 diabetes mellitus with diabetic peripheral angiopathy without gangrene; E78.5 Hyperlipidemia, unspecified; Z89.512 Acquired absence of left leg below knee; Z89.611 Acquired absence of right leg above knee; Z86.73 Personal history of transient ischemic attack (TIA), and cerebral infarction without residual deficits